=== PATIENT | female | born 1985 | race Caucasian/White ===

== ENCOUNTER 2018-01-12 07:06 | Emergency (ER) | payer OTHER ==
[2018-01-12 07:20] VITALS: BP 121/59
[2018-01-12] MEDS ORDERED: ONDANSETRON 4 MG ODT TABDP SL ONE (07:30)
--- NOTE | 2018-01-12 07:31 | ER Report ---
History and Physical Time Seen By MD: 07:31 Hx. of Stated Complaint: vomited once this morning. blood in vomit HPI/ROS 32-year-old otherwise healthy female presents to the emergency department after drinking alcohol last night with one episode of vomiting this morning. She admits to drinking alcohol last night. She awoke this morning, drink fluids, and then ate food from [employer]. She vomited once after eating [employer]. She was concerned because there was a small spot of blood in the vomit. She has been able to drink fluids since the episode. No further episodes of vomiting. No abdominal pain. Past medical problems to include coagulation problems. Remainder of the 14 system rev: Yes Allergies: Coded Allergies: No Known Drug Allergies (Unverified , 01/12/18) Home Meds No Active Prescriptions or Reported Meds Reviewed Nurses Notes: Yes Old Medical Records Reviewed: Yes Hx Smoking: No Exposure to Second Hand Smoke?: No Hx Substance Use Disorder: No Hx Alcohol Use: Yes (social) Constitutional Vital Sign - Last 24 Hours 01/12/18 07:20 Temp 97.9 Pulse 86 Resp 12 B/P (MAP) 121/59 Pulse Ox 96 O2 Delivery Room Air Physical Exam General Appearance: The patient is alert, has no immediate need for airway protection and no current signs of toxicity. Eyes: Pupils equal and round no injection. Respiratory: Chest is non tender, lungs are clear to auscultation. Cardiac: regular rate and rhythm Gastrointestinal: Abdomen is soft and non tender, no masses, bowel sounds normal. Neck: Neck is supple and non tender. Extremities have full range of motion and are non tender. Skin: No rashes or lesions. DIFFERENTIAL DIAGNOSIS: After history and physical exam differential diagnosis was considered for abdominal pain including but not limited to appendicitis, cholecystitis, gastritis, GI bleed, and urinary tract infection. Medical Decision Making ED Course/Re-evaluation ED Course 32-year-old otherwise healthy female who is in town for drill duty. She presents the emergency department with 1 episode of blood-tinged vomit after drinking alcohol heavily last night. She has no abdominal pain or tenderness to palpation. She is able to take by mouth. No coagulation problems or reason for esophageal varices. There was only one episode of vomiting. She was given Zofran and taking by mouth adequately. Her medic is at the bedside. She is to return to full duty this weekend. Decision to Disposition Date: Jan 12, 2018 Decision to Disposition Time: 07:38 Depart Departure Latest Vital Signs Vital Signs Date Time Temp Pulse Resp B/P (MAP) Pulse Ox O2 Delivery O2 Flow Rate FiO2 01/12/18 07:20 97.9 86 12 121/59 96 Room Air Impression: Primary Impression: Vomiting alone Condition: Improved Disposition: HOME OR SELF-CARE New Scripts Ondansetron (ZOFRAN ODT) 4 Mg Tab.rapdis 4 MG PO Q6H Y for NAUSEA/VOMITING, #20 TAB.TRINITY 0 Refills Prov: BOB RAY MD 01/12/18 Patient Instructions: Nuvia-Mg Syndrome (ED) Problem Qualifiers Primary Impression: Vomiting alone Vomiting type: unspecified Vomiting Intractability: non-intractable Qualified Codes: R11.11 - Vomiting without nausea BOB RAY MD Jan 12, 2018 07:31
[2018-01-12] MEDS ORDERED: ONDA4TAB PO (07:39)
== END 2018-01-12 08:00 | disposition home or self-care (01) ==
LOC: ER 07:38
DX: R11.11 Vomiting without nausea (principal)
CPT/HCPCS: 99283; S0119